=== PATIENT | female | born 1950 | race Asian ===

== ENCOUNTER 2018-10-18 16:10 | Emergency (ER) | payer BC ==
[~2018-10-18] VITALS: Ht 152.4 cm; Wt 73.5 kg
[2018-10-18 16:33] VITALS: Ht 152.4 cm; Wt 73.5 kg
[2018-10-18 19:56] VITALS: BP 146/77
== END 2018-10-18 19:56 | disposition home or self-care (01) ==
LOC: ED 16:10
DX: S01.112A Laceration without foreign body of left eyelid and periocular area, initial encounter (principal); S09.8XXA Other specified injuries of head, initial encounter; I10 Essential (primary) hypertension; E78.00 Pure hypercholesterolemia, unspecified; W01.0XXA Fall on same level from slipping, tripping and stumbling without subsequent striking against object, initial encounter; Y93.89 Activity, other specified; Y92.89 Other specified places as the place of occurrence of the external cause; Y99.8 Other external cause status
CPT/HCPCS: 90715